=== PATIENT | female | born 1995 | race American Indian/Alaskan Native ===

== ENCOUNTER 2021-09-12 08:39 | Emergency (ER) | payer OTHER ==
[2021-09-12] MEDS ORDERED: CYCLOBENZAPRINE 10 MG TAB PO ONE (12:02)
[2021-09-12] MEDS ORDERED: KETOROLAC 10 MG TAB PO ONE (12:02)
[2021-09-12] MEDS ORDERED: predniSONE 20 MG TAB PO ONE (12:02)
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
[2021-09-12 12:25] VITALS: BP 148/89
== END 2021-09-12 13:09 | disposition home or self-care (01) ==
LOC: ED 08:39
DX: M25.512 Pain in left shoulder (principal); V89.2XXA Person injured in unspecified motor-vehicle accident, traffic, initial encounter; Y93.89 Activity, other specified; Y92.89 Other specified places as the place of occurrence of the external cause; Y99.8 Other external cause status
CPT/HCPCS: 99283